=== PATIENT | male | born 1980 | race Caucasian/White ===

== ENCOUNTER 2018-09-10 09:46 | Outpatient (CLI) | payer OTHER ==
--- NOTE | 2018-09-10 11:49 | ULT ---
ABDOMINAL ULTRASOUND: 09/10/2018 PROVIDED CLINICAL HISTORY: Right upper quadrant pain. FINDINGS: The visualized abdominal aorta, IVC, and pancreas appear normal. The liver demonstrates no mass or i ntrahepatic biliary ductal dilatation. The common duct is nondilated. The gallbladder demonstrates no stones, wall thickening, or pericholecystic fluid. The kidneys demonstrate no evidence for hydron ephrosis or mass. The spleen is not enlarged and demonstrates no focal abnormality. IMPRESSION: Unremarkable abdominal ultrasound. POS: [facility]
== END 2018-09-10 09:47 | disposition home or self-care (01) ==
LOC: SCSULT 09:46
PROVIDERS: ATTEND Nurse Practitioner Adult Health
DX: R10.11 Right upper quadrant pain (principal)
CPT/HCPCS: 76700

== ENCOUNTER 2018-09-19 07:35 | Day surgery (SDC) | payer OTHER ==
[2018-09-19] MEDS ORDERED: CEFAZOLIN 2 GM/50 ML BAG ONE (08:02)
[2018-09-19] MEDS ORDERED: Bupivacaine HCl 0.5%/Epinephrine 1:200,000/PF 30 ml Vial ONE (10:07)
[2018-09-19] MEDS ORDERED: Fentanyl 100 MCG/2 ML VIAL ONE ×2 (10:15)
[2018-09-19] MEDS ORDERED: Midazolam HCl 2 mg/2 ml Vial ONE (10:23)
[2018-09-19] MEDS ORDERED: Ondansetron HCl/PF 4 MG/2 ML Vial IVP PRN (11:34)
[2018-09-19] MEDS ORDERED: Promethazine HCl 25 MG/ML VIAL IM/IV PRN (11:34)
[2018-09-19] MEDS ORDERED: Non-Formulary Medication 1 EACH PO PRN (11:34)
[2018-09-19] MEDS ORDERED: HYDROmorphone 2 MG/ML VIAL SLOW IVP PRN (11:34)
[2018-09-19] MEDS ORDERED: Metoclopramide HCl 10 MG/2 ML VIAL ONE (12:10)
[2018-09-19] MEDS ORDERED: diphenhydrAMINE 50 MG/ML VIAL ONE (12:10)
[2018-09-19] MEDS ORDERED: Dexamethasone 20 MG/5 ML VIAL ONE (12:10)
[2018-09-19] MEDS ORDERED: Ketorolac Tromethamine 30 MG/ML VIAL ONE (12:10)
[2018-09-19] MEDS ORDERED: Lidocaine 1% PF 5 ML VIAL ONE (12:10)
[2018-09-19] MEDS ORDERED: PROPOFOL 200 MG/20 ML VIAL ONE (12:10)
[2018-09-19] MEDS ORDERED: Ondansetron PF 4 MG/2 ML Vial ONE (12:10)
--- NOTE | 2018-09-19 14:25 | RAD ---
INTRAOPERATIVE IMAGING OF THE LEFT WRIST: Date: 09/19/18 COMPARISON: 09/15/18. HISTORY: Fracture, status post surgery. FINDINGS: Three intraoperative images are provided. There is a screw treating the previously noted fracture of the radial styloid. IMPRESSION: Open reduction and internal fixation as detailed above. POS: [facility]
--- NOTE | 2018-09-22 11:52 | OP ---
DATE OF PROCEDURE: 09/19/2018 PREOPERATIVE DIAGNOSIS: Left radial styloid fracture. POSTOPERATIVE DIAGNOSIS: Left radial styloid fracture. PROCEDURES PERFORMED: Closed reduction and screw fixation of left radial styloid. ANESTHESIA: General. TOURNIQUET TIME: Zero. ESTIMATED BLOOD LOSS: Less than 5 mL. IMPLANTS: Synthes 3.5 mm cannulated screw with washer. COMPLICATIONS: None. DRAINS: None. SPECIMEN: None. OUTCOME: Near-anatomic alignment. INDICATIONS FOR PROCEDURE: The patient is a pleasant 38-year-old gentleman, status post fall, sustaining left radial styloid fracture. This fracture has approximately 2 mm gap at the joint surface with vertically oriented fracture line, which I felt was at risk for further displacement. After discussion with the patient including risks and benefits, we decided to proceed with surgical stabilization. Informed consent has been obtained. I believe all questions answered. DESCRIPTION OF PROCEDURE: The patient was brought to the operating room and a time-out performed followed by induction of general anesthesia. The patient was then positioned on the OR table with the left arm on a hand board. Next, a sterile prep and drape were performed of the left upper extremity. Next, a small incision was made vertically overlying the lateral aspect of the radial styloid. Blunt dissection was then carried down to protect the thumb extensors. Next, a threaded guidewire was applied to an appropriate starting point and then under fluoroscopic guidance, delivered across the fracture line and into the distal radial metaphysis approaching the far cortex. Once appropriately positioned and it was demonstrated under fluoro, but manual pressure could reduce the fracture, a screw was then passed over this guidewire with washer, getting excellent compression across the fracture. At the completion of this, the guidewire was removed. The wound was irrigated and closed with a single nylon horizontal mattress stitch. Xeroform gauze, Webril, and radial gutter, thumb spica splint were applied to the hand, and then the patient was transferred to the recovery room in stable condition. There were no complications. He tolerated the procedure well. Job ID: [id number]
== END 2018-09-19 12:40 | disposition home or self-care (01) ==
LOC: SDC 07:35
PROVIDERS: ATTEND Orthopaedic Surgery
PROC: 0PSJ34Z Reposition Left Radius with Internal Fixation Device, Percutaneous Approach (ICD-10-PCS; principal; 2018-09-19)
DX: S52.512A Displaced fracture of left radial styloid process, initial encounter for closed fracture (principal); Z21 Asymptomatic human immunodeficiency virus [HIV] infection status; W17.89XA Other fall from one level to another, initial encounter; Z87.891 Personal history of nicotine dependence
CPT/HCPCS: 76000; C1713; C1769; J0670; J1100; J1200; J1885; J2001; J2250; J2405; J2704; J2765; J3010

== ENCOUNTER 2018-10-14 10:27 | Emergency (ER) | payer OTHER ==
[2018-10-14] MEDS ORDERED: Ketorolac Tromethamine 30 MG/ML VIAL ONE (10:37)
[2018-10-14 11:06] LABS: Hemoglobin 15.4 g/dL (14.0-18.0); Mean Corpuscular HGB CONC 33.5 g/dL (32.0-36.0); Mean Corpuscular Hemoglobin 31.3 pg (27.0-31.0); Mean Corpuscular Volume 93.5 fL (78.0-98.0); Platelet Count 199 thou/uL (130-400); RBC Distribution Width 12.1 % (11.5-14.5); Red Blood Cell (RBC) Count 4.93 mill/uL (4.70-6.10)
[2018-10-14 11:08] LABS: ALT (SGPT) 24 U/L (8-55); AST (SGOT) 25 U/L (5-34); Albumin 4.7 g/dL (3.5-5.0); Alkaline Phosphatase 81 U/L (40-150); Anion Gap 18 mmol/L (10-20); BUN (Urea Nitrogen) 9 mg/dL (8.9-20.6); Bilirubin, Total 0.8 mg/dL (0.2-1.2); Calc. Creatinine Clearance 0 mL/min (70-130); Calcium 10.2 mg/dL (7.8-10.44); Carbon Dioxide 23 mmol/L (22-29); Chloride 102 mmol/L (98-107); Estimated GFR-MDRD 70; Globulin 3.3 g/dL (2.4-3.5); Glucose 106 mg/dL (70-105); Lipase 25 U/L (8-78); Potassium 3.6 mmol/L (3.5-5.1); Sodium 139 mmol/L (136-145)
[2018-10-14 11:22] LABS: Lymphocytes 13 % (21-51); MDiff Complete? YES; Monocytes 5 % (0-10); Neutrophil 82 % (42-75); Platelet Morphology Comment Appears Adequate; RBC Morphology Normal
[2018-10-14] MEDS ORDERED: Morphine 4 MG/ML VIAL ONE (12:16)
[2018-10-14 12:20] LABS: Bilirubin Negative (Negative); Blood, Urine Trace (Negative); Clarity Clear (Clear); Glucose, Urine (Dipstick) Negative (Negative); Leukocyte Negative (Negative); Nitrite Negative (Negative); Protein, Urine (Dipstick) Negative (Neg-Trace); Urobilinogen 0.2 mg/dL (0.2-1.0)
[2018-10-14 12:25] LABS: Bacteria/HPF Rare-Few HPF (None Seen); Squamous Epithelial 0-3 HPF (0-3); WBC/HPF 0-3 HPF (0-3)
--- NOTE | 2018-10-14 14:18 | CT ---
CT ABDOMEN AND PELVIS WITH CONTRAST: HISTORY: Abdominal pain. COMPARISON: None. FINDINGS: There is a single 5 mm nodule left lung base. NO pericardial effusion. Mild decreased attenuation of the liver suggesting steatosis. Gallbladder is normal as well as the p ancreas. No hydronephrosis. The appendix is visualized and is normal. No dilated loops of large or small bowel. Mild thickening of the terminal ileum. There is mild alise a within the distal ileal mesentery. Aortic contour is nonaneurysmal. No retroperitoneal adenopathy. No acute osseous abnormality. IMPRESSION: 1. Normal appendix. 2. Mild hyperemia of the distal ileal mesentery with mildly thickened terminal ileum can be seen wit h terminal ileitis, either infection or inflammatory. Inflammatory bowel disease is within the diffe rential. 3. Decreased attenuation of the liver suggesting steatosis. POS: [facility]
[2018-10-14] MEDS ORDERED: Iopamidol 300 61% 100 ML VIAL FS ONE (15:25)
== END 2018-10-14 13:45 | disposition home or self-care (01) ==
LOC: SCSER 10:27
DX: K52.9 Noninfective gastroenteritis and colitis, unspecified (principal); F17.290 Nicotine dependence, other tobacco product, uncomplicated; B20 Human immunodeficiency virus [HIV] disease
CPT/HCPCS: 74177; 80053; 81003; 81015; 83605; 83690; 85025; 96361; 96374; 96375; J1885; J2270; Q9967

== ENCOUNTER 2019-02-20 06:16 | Day surgery (SDC) | payer OTHER ==
[2019-02-19 11:46] VITALS: BMI 25.8
[2019-02-20] MEDS ORDERED: Lidocaine 1% (PF) 30 ML VIAL ONE (06:58)
[2019-02-20] MEDS ORDERED: Midazolam HCl 2 mg/2 ml Vial ONE (07:14)
[2019-02-20] MEDS ORDERED: Fentanyl 100 MCG/2 ML VIAL ONE ×2 (07:59→08:38)
[2019-02-20] MEDS ORDERED: HYDROcodone/Acetaminophen 5/325 mg Tablet ONE (09:19)
--- NOTE | 2019-02-20 15:15 | RAD ---
LEFT WRIST INTRAOPERATIVE FLUOROSCOPY: Date: 02/20/19 HISTORY: Hardware removal. FINDINGS: Single view of the wrist does not demonstrate any hardware. EXPOSURE: 3.5 seconds. 0.10 mGy*cm^2. IMPRESSION: Fluoroscopy as above. POS: [facility]
--- NOTE | 2019-02-22 08:06 | OP ---
DATE OF PROCEDURE: 02/20/2019 PREOPERATIVE DIAGNOSIS: Healed left radial styloid fracture with symptomatic retained hardware. POSTOPERATIVE DIAGNOSIS: Healed left radial styloid fracture with symptomatic retained hardware. PROCEDURE PERFORMED: Removal of symptomatic retained hardware, left wrist. ANESTHESIA: General. TOURNIQUET TIME: 13 minutes at 250 mmHg. SPECIMEN: Explanted screw to be given to the patient. COMPLICATIONS: None. DRAINS: None. OUTCOME: Successful hardware removal. INDICATIONS FOR PROCEDURE: The patient is a 38-year-old gentleman status post left radial styloid fracture treated with closed reduction and percutaneous screw fixation. The patient has now gone on to heal his fracture, but is having symptoms from the retained hardware. As such, he is now scheduled for hardware removal. Informed consent has been obtained. I believe all questions have been answered. DESCRIPTION OF PROCEDURE: The patient was brought to the operating room and a time-out performed, followed by induction of general anesthesia. Next, a sterile prep and drape was performed in the left upper extremity. Following the previous skin incision, an incision was made and then blunt dissection carried down through the radial side of the wrist, taking care to protect the abductor and extensor tendons. Once the screw head was visualized, it was removed without difficulty as was the underlying washer. Next, the wound irrigated with normal saline and closed with a buried Monocryl suture and then Steri-Strips applied. At the completion of this, Xeroform gauze and Clement wrap dressing was applied to the wrist. Tourniquet was let down with total time of 13 minutes, and then, the patient was transferred to recovery room in stable condition. There were no complications. The patient tolerated the procedure well. Job ID: [id number]
== END 2019-02-20 10:27 | disposition home or self-care (01) ==
LOC: SDC 06:16
PROVIDERS: ATTEND Orthopaedic Surgery
PROC: 0PP Upper Bones, Removal (ICD-10-PCS; principal; 2019-02-20)
DX: S52.515D Nondisplaced fracture of left radial styloid process, subsequent encounter for closed fracture with routine healing (principal); Z79.899 Other long term (current) drug therapy; Z88.1 Allergy status to other antibiotic agents
CPT/HCPCS: 76000; J0690; J2001; J2250; J3010